=== PATIENT | male | born 1955 | race Caucasian/White ===

== ENCOUNTER → 2016-11-16 | Outpatient (CLI) | payer OTHER ==
--- NOTE | 2016-11-16 16:17 | Diagnostic Imaging Report ---
Three views of the nasal bones. INDICATION: Fall. FINDINGS: No fracture or radiopaque foreign body is seen. The paranasal sinuses appear clear. IMPRESSION: No nasal bone fracture seen. Dictated by: Dictated on workstation # [id number]
== END ==
LOC: RAD 15:49
PROVIDERS: ATTEND Otolaryngology Otolaryngology/Facial Plastic Surgery
DX: S09.92XA Unspecified injury of nose, initial encounter (principal); W19.XXXA Unspecified fall, initial encounter; Y99.8 Other external cause status
CPT/HCPCS: 70160

== ENCOUNTER 2019-09-22 10:01 | Day surgery (SDC) | payer MEDICARE, OTHER ==
[~2019-09-22] VITALS: Ht 177.5 cm; Wt 113.6 kg
[2019-09-22] MEDS ORDERED: NITROGLYCERIN 0.4 MG SL TABS BTL 25'S SL ONE (10:03)
[2019-09-22] MEDS ORDERED: ASPIRIN 81 MG CHEW (CHILDREN'S ASA) ONE (10:03)
[2019-09-22 10:16] LABS: BASOPHILS % (AUTO) 0 % (0-10); EOSINOPHILS % (AUTO) 0 % (0-10); HEMATOCRIT 48 % (40-54); HEMOGLOBIN 16.2 G/DL (13.3-17.7); LYMPHOCYTES # (AUTO) 1.2 X 10^3 (1.0-4.0); LYMPHOCYTES % (AUTO) 10 % (12-44); MEAN CORPUSCULAR HEMOGLOBIN 30 PG (25-34); MEAN CORPUSCULAR HGB CONC 34 G/DL (32-36); MEAN CORPUSCULAR VOLUME 87 FL (80-99); MEAN PLATELET VOLUME 8.9 FL (7.4-10.4); MONOCYTES # (AUTO) 0.5 X 10^3 (0.0-1.0); MONOCYTES % (AUTO) 4 % (0-12); NEUTROPHILS # (AUTO) 10.5 X 10^3 (1.8-7.8); NEUTROPHILS % (AUTO) 86 % (42-75); PLATELET COUNT 291 10^3/uL (130-400); RED CELL DISTRIBUTION WIDTH 13.5 % (10.0-14.5); WHITE BLOOD COUNT 12.3 10^3/uL (4.3-11.0)
[2019-09-22 10:26] LABS: INR 0.9 (0.8-1.4); PROTHROMBIN TIME PATIENT 12.4 SEC (12.2-14.7)
--- NOTE | 2019-09-22 10:33 | ED Chest Pain ---
General Chief Complaint: Chest Pain Stated Complaint: CP Nursing Triage Note: Pt c/o chest pain on and off for several years. Pt reports pain worsened yesterday and was intermittent until 0300 this morning when pain became constant. Pt describes pain as constant/aggrevating. Pt reports sweaty palms at times. Nursing Sepsis Screen: No Definite Risk Source: patient Exam Limitations: no limitations History of Present Illness Date Seen by Provider: Sep 22, 2019 Time Seen by Provider: 10:10 Initial Comments Here with complaint of central chest pain that radiates slightly to the right. He's had chest pain on and off for quite a while but has worsened both in intensity and frequency. Did have chest pain yesterday and again this morning and is persisting. He did take his blood pressure medicines this morning but only just shortly before arrival. Does have history of hypertension. No history of heart problems and has never been worked up for that before. Denies nausea or vomiting but does have sweating hands. Timing/Duration: 4-6 hours, changing over time, intermittent Severity/Quality: moderate, aching, tightness Location: central Radiation: other (right chest) Activities at Onset: sleep Prior CP/Workup: no prior cardiac workup Modifying Factors: worse with exercise, worse with movement; improves with rest ASA po ASSOCIATE PROFESSOR OF PSYCHOLOGY: No NTG SL ASSOCIATE PROFESSOR OF PSYCHOLOGY: No Associated Symptoms: No abdominal pain, No back pain, No fatigue, No fever/chills, No nausea/vomiting, No shortness of breath, No weakness Allergies and Home Medications Allergies Coded Allergies: No Known Drug Allergies (Unverified , 09/22/19) Patient Home Medication List Home Medication List Reviewed: Yes Review of Systems Review of Systems Constitutional: no symptoms reported EENTM: No Symptoms Reported Respiratory: Denies Cough, Denies Shortness of Air Cardiovascular: Chest Pain; Denies Edema Gastrointestinal: Denies Abdominal Pain, Denies Diarrhea, Denies Nausea, Denies Vomiting Genitourinary: No Symptoms Reported Musculoskeletal: no symptoms reported Skin: no symptoms reported All Other Systems Reviewed Negative Unless Noted: Yes Past Vfczvcq-Cmdnpp-Atdvoc Hx Past Med/Social Hx: Reviewed Nursing Past Med/Soc Hx Patient Social History Alcohol Use: Denies Use Recreational Drug Use: No Type Used: Smokeless Tobacco 2nd Hand Smoke Exposure: No Recent Foreign Travel: No Contact w/Someone Who Travel: No Recent Infectious Disease Expo: No Recent Hopitalizations: No Past Medical History Surgeries: Yes (lung, 7 hand surgeries) Orthopedic Respiratory: No Cardiac: Yes High Cholesterol, Hypertension Neurological: No Genitourinary: No Gastrointestinal: No Musculoskeletal: No Endocrine: No HEENT: No Cancer: No Psychosocial: No Integumentary: No Blood Disorders: No Adverse Reaction/Blood Tranf: No Family Medical History Reviewed Nursing Family Hx No Pertinent Family Hx Physical Exam Vital Signs Vital Signs - First Documented Capillary Refill : Less Than 3 Seconds Height, Weight, BMI Height: '" Weight: lbs. oz. kg; 34.00 BMI Method: General Appearance: No Apparent Distress, WD/WN HEENT: PERRL/EOMI, Pharynx Normal Neck: Non Tender, Supple Respiratory: Lungs Clear, Normal Breath Sounds Cardiovascular: Regular Rate, Rhythm, No Murmur Gastrointestinal: Non Tender, Soft Extremity: Normal Range of Motion, Non Tender Neurologic/Psychiatric: Alert, Oriented x3 Skin: Normal Color, Warm/Dry Progress/Results/Core Measures Results/Orders Lab Results Laboratory Tests Test 09/22/19 10:05 Range/Units White Blood Count 12.3 H 4.3-11.0 10^3/uL Red Blood Count 5.49 4.35-5.85 10^6/uL Hemoglobin 16.2 13.3-17.7 G/DL Hematocrit 48 40-54 % Mean Corpuscular Volume 87 80-99 FL Mean Corpuscular Hemoglobin 30 25-34 PG Mean Corpuscular Hemoglobin Concent 34 32-36 G/DL Red Cell Distribution Width 13.5 10.0-14.5 % Platelet Count 291 130-400 10^3/uL Mean Platelet Volume 8.9 7.4-10.4 FL Neutrophils (%) (Auto) 86 H 42-75 % Lymphocytes (%) (Auto) 10 L 12-44 % Monocytes (%) (Auto) 4 0-12 % Eosinophils (%) (Auto) 0 0-10 % Basophils (%) (Auto) 0 0-10 % Neutrophils # (Auto) 10.5 H 1.8-7.8 X 10^3 Lymphocytes # (Auto) 1.2 1.0-4.0 X 10^3 Monocytes # (Auto) 0.5 0.0-1.0 X 10^3 Eosinophils # (Auto) 0.0 0.0-0.3 10^3/uL Basophils # (Auto) 0.0 0.0-0.1 10^3/uL Prothrombin Time 12.4 12.2-14.7 SEC INR Comment 0.9 0.8-1.4 Activated Partial Thromboplast Time 29 24-35 SEC D-Dimer < 0.27 0.00-0.49 UG/ML Sodium Level 137 135-145 MMOL/L Potassium Level 4.1 3.6-5.0 MMOL/L Chloride Level 101 98-107 MMOL/L Carbon Dioxide Level 28 21-32 MMOL/L Anion Gap 8 5-14 MMOL/L Blood Urea Nitrogen 12 7-18 MG/DL Creatinine 0.95 0.60-1.30 MG/DL Estimat Glomerular Filtration Rate > 60 BUN/Creatinine Ratio 13 Glucose Level 171 H 70-105 MG/DL Calcium Level 8.9 8.5-10.1 MG/DL Corrected Calcium 8.7 8.5-10.1 MG/DL Magnesium Level 1.9 1.6-2.4 MG/DL Total Bilirubin 0.4 0.1-1.0 MG/DL Aspartate Amino Transf (AST/SGOT) 25 5-34 U/L Alanine Aminotransferase (ALT/SGPT) 20 0-55 U/L Alkaline Phosphatase 66 40-136 U/L Myoglobin 166.7 H 10.0-92.0 NG/ML Troponin I 0.445 *H <0.028 NG/ML Total Protein 6.9 6.4-8.2 GM/DL Albumin 4.3 3.2-4.5 GM/DL Micro Results Microbiology 09/22/19 Influenza Types A,B Antigen (JAYMIE) - Final, Complete My Orders Orders - JUNE DECKER MD Cbc With Automated Diff (09/22/19 10:06) Magnesium (09/22/19 10:06) Chest 1 View, Ap/Pa Only (09/22/19 10:06) Ekg Tracing (09/22/19 10:06) Comprehensive Metabolic Panel (09/22/19 10:06) Myoglobin Serum (09/22/19 10:06) Protime With Inr (09/22/19 10:06) Partial Thromboplastin Time (09/22/19 10:06) O2 (09/22/19 10:06) Monitor-Rhythm Ecg Trace Only (09/22/19 10:06) Lipid Panel (09/23/19 06:00) Ed Iv/Invasive Line Start (09/22/19 10:06) Troponin I (09/22/19 10:06) Nitroglycerin 0.4 Mg Btl 25's (Nitrostat (09/22/19 10:03) Aspirin Chewable Tablet (Baby Aspirin Ch (09/22/19 10:03) Fibrin Degradation Products (09/22/19 10:13) Influenza A And B Antigens (09/22/19 10:13) Lactated Ringers (Lr 1000 Ml Iv Solution (09/22/19 11:37) Clopidogrel Tablet (Plavix Tablet) (09/22/19 11:44) Clopidogrel Tablet (Plavix Tablet) (09/22/19 12:00) Heparin Drip [id number] Unit/500ml (Heparin (09/22/19 11:47) Heparin (Bolus Per Protocol) (Heparin (B (09/22/19 11:47) Heparin Drip [id number] Unit/500ml (Heparin (09/22/19 11:45) Heparin (Bolus Per Protocol) (Heparin (B (09/22/19 11:46) Medications Given in ED Current Medications Medications Dose Ordered Sig/Primo Route Start Time Stop Time Status Last Admin Dose Admin Aspirin 81 mg STK-MED ONCE .ROUTE 09/22/19 10:03 09/22/19 10:09 DC 09/22/19 10:10 324 MG Nitroglycerin 0.4 mg STK-MED ONCE SL 09/22/19 10:03 09/22/19 10:09 DC 09/22/19 10:11 0.4 MG Vital Signs/I&O 09/22/19 09/22/19 10:02 10:02 Temp 36.7 Pulse 102 Resp 30 B/P (MAP) 161/117 (132) Pulse Ox 97 O2 Delivery Room Air Room Air Blood Pressure Mean: 132 Progress Progress Note : Progress Note Seen and evaluated. Chest pain order set initiated. ASA 324 mg by mouth ordered. Nitroglycerin sublingual ordered. The nitroglycerin did help both his blood pressure and his chest pain. Monitor patient. 1150: Troponin is elevated. Patient's blood pressure is starting to get soft. We have initiated LR 1 L bolus which has helped. Pain is resolved. I do have concerns that this is MS although is not ST elevation MS. I did discuss the case with Dr. Castanon. He will take the patient to the [facility]. Family informed. Plavix 300 mg by mouth. Heparin 5000 unit bolus and 1000 unit an hour drip has been ordered. [facility]st team is been activated. Initial ECG Impression Date: Sep 22, 2019 Initial ECG Impression Time: 10:05 Initial ECG Rate: 100 Initial ECG Rhythm: S.Tach Comment Sinus tachycardia with inferior Q waves that are new from 02/28/07. No evidence of ST elevation MS. Normal axis. Interpreted by me. Diagnostic Imaging Diagonstic Imaging: Xray Plain Films/CT/US/NM/MRI: chest Comments [facility], [place] NAME: MIR CHINCHILLA [facility] REC#: [id number] PT STATUS: REG ER : 1955 PHYSICIAN: JUNE DECKER MD ADMIT DATE: 09/22/19/ER Signed Date of Exam:09/22/19 CHEST 1 VIEW, AP/PA ONLY EXAMINATION: Chest 1 view HISTORY: Chest pain. COMPARISON: 02/28/2007 FINDINGS: The lung volumes are normal. No focal consolidation is seen. No large pleural effusion or pneumothorax is seen. The cardiomediastinal silhouette is normal in size and contour. No acute osseous abnormality is seen. IMPRESSION: 1. No acute pleuroparenchymal process. Dictated by: Dictated on workstation # [id number] Dict: 09/22/19 1031 Trans: 09/22/19 1032 [facility] [id number] Interpreted by: DARREL PUGA DO Electronically signed by: DARREL PUGA DO 09/22/19 1032 Departure Communication (Admissions) Time/Spoke to Admitting Phy: 11:50 Impression Primary Impression: Non-ST elevation MS (NSTEMI) Disposition: ADMITTED INPATIENT Condition: Stable Admissions Decision to Admit Reason: Admit from ER (General) Decision to Admit/Date: Sep 22, 2019 Time/Decision to Admit Time: 11:50 Departure-Patient Inst. Referrals: UNIQUE LAMAS MD (PCP/Family) Primary Care Physician JUNE DECKER MD Sep 22, 2019 10:33
[2019-09-22 10:34] LABS: ALANINE AMINOTRANSFERASE 20 U/L (0-55); ALBUMIN 4.3 GM/DL (3.2-4.5); ALKALINE PHOSPHATASE 66 U/L (40-136); BILIRUBIN,TOTAL 0.4 MG/DL (0.1-1.0); BUN/CREATININE RATIO 13; CALCIUM 8.9 MG/DL (8.5-10.1); CARBON DIOXIDE 28 MMOL/L (21-32); CHLORIDE 101 MMOL/L (98-107); CREATININE SERUM 0.95 MG/DL (0.60-1.30); GFR ESTIMATED > 60; GLUCOSE 171 MG/DL (70-105); MAGNESIUM 1.9 MG/DL (1.6-2.4); POTASSIUM 4.1 MMOL/L (3.6-5.0); SODIUM 137 MMOL/L (135-145); TOTAL PROTEIN 6.9 GM/DL (6.4-8.2)
[2019-09-22] MEDS ORDERED: LACTATED RINGERS 1,000 ML IV ONE (11:37)
[2019-09-22] MEDS ORDERED: CLOPIDOGREL 300 MG (PLAVIX) TABLET PO ONE ×2 (11:44→12:00)
[2019-09-22] MEDS ORDERED: HEParin DRIP 25000 UNIT/500ML 0 ML IV ONE (11:45)
[2019-09-22] MEDS ORDERED: HEParin 1000 UNIT/ML (10ML VIAL) FOR BOLUS ONE (11:46)
[2019-09-22] MEDS ORDERED: HEParin 1000 UNIT/ML (10ML VIAL) FOR BOLUS IV ONE (11:47)
[2019-09-22] MEDS ORDERED: HEParin DRIP 25000 UNIT/500ML 500 ML IV ONE ×2 (11:47→14:30)
--- NOTE | 2019-09-22 12:08 | NUR ---
DR KANG HERE TO SEE PT
[2019-09-22] MEDS ORDERED: LIDOCAINE 1% INJ 20 ML 20 ML VIAL ONE (12:10)
[2019-09-22] MEDS ORDERED: HEParin (CATH LAB) 2,000 ML IV ONE (12:11)
--- NOTE | 2019-09-22 12:15 | NUR ---
PT REQUEST SIGN CONSENT FOR HEART CATH
[2019-09-22] MEDS ORDERED: MIDAZOLAM 5 MG/5 ML (VERSED) VIAL ONE ×2 (12:18→13:37)
[2019-09-22] MEDS ORDERED: fentaNYL INJECTION 100 MCG/2 ML AMP ONE ×2 (12:18→13:37)
--- NOTE | 2019-09-22 12:21 | Cardiology History & Physical ---
HPI-Cardiology Cardiology H&P Date of Admission 09/22/19 Primary Care Physician Calli Lloyd MD Attending Physician Milan Castanon MD, MA FACP [facility] CCDS Consulting Physician LUIS A CC: Chest discomfort HPI: 64 yo man with more than 24 hours of chest pain that is mid sternal and R parasternal, mod in intensity, non-radiating, worse with activity, improved with rest, improved with s/l NTG in ER, not associated with nausea or diaphoresis, not experienced before Kishan shortness of breath or palp or syncope or leg swelling Review of Systems-Cardiology Review of Systems Constitutional: No lightheadedness, No malaise, No weight loss, No weight gain Eyes: No vision change Ears/Nose/Throat: No ear discharge, No nasal drainage Respiratory: As described under HPI Cardiovascular: As described under HPI Gastrointestinal: No constipation, No diarrhea, No nausea, No vomiting Genitourinary: No dysuria, No hematuria, No urine frequency changes Musculoskeletal: No back pain, No joint pain Skin: No rash, No ulcerations Psychiatric/Neurological: No seizure, No focal weakness, No syncope Hematologic: No bleeding abnormalities All Other Systems Reviewed Negative Unless Noted: Yes OLY-Ytsiou-Sczxkf Hx Patient Social History Alcohol Use: Denies Use Recreational Drug Use: No Type Used: Smokeless Tobacco 2nd Hand Smoke Exposure: No Recent Foreign Travel: No Recent Infectious Disease Expo: No Hospitalization with Isolation: Denies Past Medical History PMH As described under Assessment. Family Medical History Family Medical History: Does not report fam h/o early CAD or SCD Allergies and Home Medications Allergies Coded Allergies: No Known Drug Allergies (Unverified , 09/22/19) Patient Home Medication List Home Medication List Reviewed: Yes Physical Exam-Cardiology Physical Exam Vital Signs/I&O 09/22/19 09/22/19 10:02 10:02 Temp 36.7 Pulse 102 Resp 30 B/P (MAP) 161/117 (132) Pulse Ox 97 O2 Delivery Room Air Room Air Capillary Refill : Less Than 3 Seconds Constitutional: AAO x 3, well-developed, well-nourished HEENT: EOMI, hearing is well preserved; No xanthelasmas are seen Neck: carotid pulses are 2 + bilaterally, with good upstrokes Respiratory: No accessory muscle use; other (good bilat air entry) Cardiovascular: regular rate-rhythm, S1 and S2, systolic murmur (faint MAEVE at card base) Gastrointestinal: No tender; soft; No guarding, No rebound; audible bowel sounds Extremities: No clubbing, No cyanosis, No significant edema Neurologic/Psychiatric: No oriented x 3; other (moves all limbs equally) Skin: No rash, No ulcerations Data Review Labs Laboratory Tests 09/22/19 10:05: White Blood Count 12.3H, Red Blood Count 5.49, Hemoglobin 16.2, Hematocrit 48, Mean Corpuscular Volume 87, Mean Corpuscular Hemoglobin 30, Mean Corpuscular Hemoglobin Concent 34, Red Cell Distribution Width 13.5, Platelet Count 291, Mean Platelet Volume 8.9, Neutrophils (%) (Auto) 86H, Lymphocytes (%) (Auto) 10L , Monocytes (%) (Auto) 4, Eosinophils (%) (Auto) 0, Basophils (%) (Auto) 0, Neutrophils # (Auto) 10.5H, Lymphocytes # (Auto) 1.2, Monocytes # (Auto) 0.5, Eosinophils # (Auto) 0.0, Basophils # (Auto) 0.0, Prothrombin Time 12.4, INR Comment 0.9, Activated Partial Thromboplast Time 29, D-Dimer < 0.27, Sodium Level 137, Potassium Level 4.1, Chloride Level 101, Carbon Dioxide Level 28, Anion Gap 8, Blood Urea Nitrogen 12, Creatinine 0.95, Estimat Glomerular Filtration Rate > 60, BUN/Creatinine Ratio 13, Glucose Level 171H, Calcium Level 8.9, Corrected Calcium 8.7, Magnesium Level 1.9, Total Bilirubin 0.4, Aspartate Amino Transf (AST/SGOT) 25, Alanine Aminotransferase (ALT/SGPT) 20, Alkaline Phosphatase 66, Myoglobin 166.7H, Troponin I 0.445*H, Total Protein 6.9, Albumin 4.3 Microbiology 09/22/19 Influenza Types A,B Antigen (JAYMIE) - Final, Complete Laboratory Tests 09/22/19 10:05 A/P-Cardiology Assessment/Admission Diagnosis Acute NSTEMI Hypertension Hyperlipidemia Obesity with BMI approx 35 Admission Status: Inpatient Order (span 2 midnights) Reason for Inpatient Admission: Ac [place] Discussion and Recomendations * Urgent cath with possible PCI, given unstable symptoms (only partially responsive to meds, pain continues, intermittently low bp) * We discussed the rationale, procedure, risks, benefits, potential complicat ions, and alternatives of card and possible PCI. He understands and provides informed consent Clinical Quality Measures AMI/AHF: ASA po Prior to arrival: MILAN Campbell MD FACP FAC CCDS Sep 22, 2019 12:21
--- NOTE | 2019-09-22 14:55 | Cardiac Procedure Note-CS/ASA ---
Pre-Procedure Note Pre-Op Procedure Note H&P Reviewed The H&P was reviewed, patient examined and no changes noted. Date H&P Reviewed: Sep 22, 2019 Time H&P Reviewed: 12:50 Conscious Sedation Pre-Proced Time 12:50 ASA Score 3 For ASA 3 and 4: Consider anesthesia and medical clearance. Also, for patients with a history of failed moderate sedation consider anesthesia. Airway Lungs Heart ASA score ASA 1: a normal healthy patient ASA 2: a patient with a mild systemic disease (mid diabetes, controlled hypertension, obesity ASA 3: a patient with a severe systemic disease that limits activity (angina, COPD, prior Myocardial infarction) ASA 4: a patient with an incapacitating disease that is a constant threat to life (CHF, renal failure) ASA 5: a moribund patient not expected to survive 24 hrs. (ruptured aneurysm) ASA 6: a declared brain- patient whose organs are being harvested. For emergent operations, add the letter E after the classification Mallampati Classification Grade 3 Sedation Plan Analgesia, Amnesia, Plan communicated to team members, Discussed options with patient/fam, Discussed risks with patient/fam The patient is an appropriate candidate to undergo the planned procedure, sedation, and anesthesia. The patient immediately re-assessed prior to indication. SHAY KANG MD FACP FAC CCDS Sep 22, 2019 14:55
--- NOTE | 2019-09-22 15:01 | Cardiology Discharge Summary ---
Diagnosis/Chief Complaint Date of Admission 09/22/19 Date of Discharge 09/22/19 Admission Diagnosis Acute NSTEMI Hypertension Hyperlipidemia Obesity with BMI approx 35 Final/Discharge Diagnosis Acute NSTEMI Card cath of 09/22/19: Long, up to 95% prox and mid LAD, 70-80% prox D2, 50% mid LCX, 100% distal RCA, L to R collaterals, LVEDP 9 mmHg, LVEF 35-40%, posterobasal akinesis, apical hypokinesis H/o hypertension H/o hyperlipidemia Obesity with BMI approx 35 Chief Complaint/HPI Chief Complaint/HPI CC: Chest discomfort HPI: 64 yo man with more than 24 hours of chest pain that is mid sternal and R parasternal, mod in intensity, non-radiating, worse with activity, improved with rest, improved with s/l NTG in ER, not associated with nausea or diaphoresis, not experienced before Kishan shortness of breath or palp or syncope or leg swelling Hosp course Card cath undertaken. Results summarized above. CABG appears to be the best treatment option. IABP inserted to stabilize angina and bp. We spoke with Dr Dolan at [facility] who has accepted the patient in transfer. Arrangement are being made Discharge Summary Procedures Cardiac cath and IABP Hospital Course Pending Labs Microbiology Date/Time Source Procedure Growth Status 09/22/19 10:12 Nasopharynx Influenza Types A,B Antigen (JAYMIE) - Final Complete Laboratory Tests 09/22/19 10:05: White Blood Count 12.3, Red Blood Count 5.49, Hemoglobin 16.2, Hematocrit 48, Mean Corpuscular Volume 87, Mean Corpuscular Hemoglobin 30, Mean Corpuscular Hemoglobin Concent 34, Red Cell Distribution Width 13.5, Platelet Count 291, Mean Platelet Volume 8.9, Neutrophils (%) (Auto) 86, Lymphocytes (%) (Auto) 10, Monocytes (%) (Auto) 4, Eosinophils (%) (Auto) 0, Basophils (%) (Auto) 0, Neutrophils # (Auto) 10.5, Lymphocytes # (Auto) 1.2, Monocytes # (Auto) 0.5, Eosinophils # (Auto) 0.0, Basophils # (Auto) 0.0, Prothrombin Time 12.4, INR Comment 0.9, Activated Partial Thromboplast Time 29, D-Dimer < 0.27, Sodium Level 137, Potassium Level 4.1, Chloride Level 101, Carbon Dioxide Level 28, Anion Gap 8, Blood Urea Nitrogen 12, Creatinine 0.95, Estimat Glomerular Filtration Rate > 60, BUN/Creatinine Ratio 13, Glucose Level 171, Calcium Level 8.9, Corrected Calcium 8.7, Magnesium Level 1.9, Total Bilirubin 0.4, Aspartate Amino Transf (AST/SGOT) 25, Alanine Aminotransferase (ALT/SGPT) 20, Alkaline Phosphatase 66, Myoglobin 166.7, Troponin I 0.445, Total Protein 6.9, Albumin 4.3 Discussion & Recommendations Home Medications Reviewed patient Home Medication Reconciliation performed by pharmacy medication reconciliations avionics systems technician and/or nursing. Patients Allergies have been reviewed. Discharge Home Medications: Reviewed and agree with Discharge Medication list on patient's Discharge Instruction sheet Clinical Quality Measures AMI/AHF: ASA po Prior to arrival: SHAY Campbell MD FACP FAC CCDS Sep 22, 2019 15:01
--- NOTE | 2019-09-22 15:05 | NUR ---
Pt arrived to [facility] with cheesemaking laborer RNs. IABP in place at 1:1. Sheath site assessed et without s/s bleeding. Opsite over site et c/d/i. Pt A&O, denies pain. Pt educated on importance on staying flat without lifting head or moving rt leg. Pt verbalizes understanding.
[2019-09-22 15:15] VITALS: BP 122/82
[2019-09-22 15:30] VITALS: BP 123/73
--- NOTE | 2019-09-22 15:30 | NUR ---
Report called to CB Talamantes at [facility]
[2019-09-22 15:45] VITALS: BP 98/68
[2019-09-22 16:00] VITALS: BP 102/70
--- NOTE | 2019-09-22 16:15 | NUR ---
Julio et [facility] here to transport pt to [facility]. Report given
--- NOTE | 2019-09-22 16:48 | CARDIAC CATHETERIZATION ---
DATE OF SERVICE: 09/22/2019 CARDIAC CATHETERIZATION REPORT The patient is a 64-year-old man who presented to the emergency room with chest pain. Troponin was minimally elevated. Diagnosis of acute non-ST elevation myocardial infarction was made. Symptoms remained unstable and the blood pressure was also intermittently somewhat low. Urgent cardiac catheterization was recommended. Informed consent was obtained. DESCRIPTION OF PROCEDURE: He was brought to the cardiac catheterization laboratory. The right groin was prepared and draped in the usual sterile fashion. Lidocaine 1% was used for local anesthesia. Modified Seldinger technique was used to advance a 5-[place] sheath in the right femoral artery. A 5-[place] JL4 catheter for left coronary angiography. A 5-[place] JR4 catheter was used for right coronary angiography. A 5-[place] pigtail catheter was used for left heart catheterization and left ventricular angiography. Pigtail catheter was pulled back to the aortic arch and aortic arch angiography was performed. Aortic arch angiography was performed after the decision had been made to insert a balloon pump. The diagnostic catheters were removed. The sheath was exchanged over a wire for a long sheath for a balloon pump. Balloon pump was inserted under fluoroscopy. The tip of the balloon pump is just caudal to the left subclavian artery. The patient tolerated the procedure well. The balloon pump was sutured in place. HEMODYNAMICS: Left ventricular end-diastolic pressure following coronary angiography was 9 mmHg. There was no significant pressure gradient on pullback across the aortic valve. Ascending aortic pressure was 93/63 with a mean of 77 mmHg. CORONARY ANGIOGRAPHY: Left main coronary artery did not exhibit significant obstructive disease. Left anterior descending artery has severe disease in its proximal and mid portions. There are stenoses up to 95%. The second obtuse marginal branch is of a fairly large caliber and has 70% to 80% ostial stenosis. The left anterior descending artery is heavily calcified in its proximal and mid portions. The left circumflex artery has approximately 50 to 60% stenosis following the origin of the first obtuse marginal branch. The right coronary artery is occluded in its distal portion. There are left to right collaterals. LEFT VENTRICULAR ANGIOGRAPHY: Left ventricular angiography was carried out on the right anterior oblique projection. Global left ventricular systolic function is impaired and the ejection fraction is estimated to be 35 to 40%. There is posterobasal akinesis. There is hypokinesis of the diaphragmatic and the apical moore of the left ventricle. CONCLUSIONS: 1. Coronary artery disease consisting of a long stenosis within the proximal and mid left anterior descending artery that is up to 95%, 70% to 80% ostial and proximal stenosis of a large second diagonal, 50% stenosis of the mid left circumflex, and a distal vessel occlusion of the right coronary. There are left to right collaterals. 2. Normal left ventricular end-diastolic pressure. 3. Impairment of global left ventricular systolic function with an ejection fraction of 35% to 40%. 4. Posterobasal akinesis and diaphragmatic and apical hypokinesis. DISCUSSION AND RECOMMENDATIONS: Based on results of the study, coronary artery bypass surgery appears to be the best treatment option. We proceeded with balloon pump implantation to maximize treatment, we have inserted. We have inserted balloon pump. We have spoken with Dr. Dolan of cardiovascular surgical service at [facility]. He has accepted the patient in transfer. Arrangements are being made at the time of this dictation. I have also discussed his cardiac catheterization findings with the patient and his . Job ID: [id number] DocumentID: [id number] Dictated Date: 09/22/2019 14:51:25 Keypunch Operator Date: 09/22/2019 16:47:33 Dictated By: SHAY KANG MD, MA, FACP, FACC,
== END 2019-09-22 16:39 | disposition other institution (70) ==
LOC: EDUNIT# 10:01 → ER 10:03 → CATH 12:14 → ICU 15:05 → CATH 16:39
PROVIDERS: ATTEND Internal Medicine Cardiovascular Disease
DX: I21.4 Non-ST elevation (NSTEMI) myocardial infarction (principal); I10 Essential (primary) hypertension; E78.00 Pure hypercholesterolemia, unspecified; E78.5 Hyperlipidemia, unspecified; E66.9 Obesity, unspecified; Z68.35 Body mass index [BMI] 35.0-35.9, adult
CPT/HCPCS: 33967; 36221; 36415; 71045; 80053; 83735; 83874; 84484; 85025; 85379; 85610; 85730; 87804; 93005; 93041; 93458

== ENCOUNTER → 2020-01-16 | Outpatient (CLI) | payer MEDICARE, OTHER | LOC: CARD 08:25 | PROVIDERS: ATTEND Physician Assistant | DX: I25.10 Atherosclerotic heart disease of native coronary artery without angina pectoris (principal); I10 Essential (primary) hypertension; E78.2 Mixed hyperlipidemia; E66.9 Obesity, unspecified | CPT/HCPCS: 93306 ==

== ENCOUNTER → 2021-01-18 | Outpatient (CLI) | payer MEDICARE, OTHER ==
[~2021-01-18] MED LIST: CATHETER FLUSH 10 ML SYR IV PRN
[2021-01-18 08:55] VITALS: BP 157/92
--- NOTE | 2021-01-18 12:31 | Cardiology Stress Test Report ---
Stress Test Report Date of Procedure/Referring: Date of Procedure: Jan 18, 2021 Izzy Caba Admitting Physician Calli Lloyd MD Indications: CAD Baseline Heart Rate: 71 Baseline Blood Pressure: Blood Pressure Systolic: 157 Blood Pressure Diastolic: 92 Vital Signs Date Time Temp Pulse Resp B/P (MAP) Pulse Ox O2 Delivery O2 Flow Rate FiO2 01/18/21 08:55 71 14 157/92 (113) 97 Room Air Baseline Vital Signs Vital Signs Date Time Temp Pulse Resp B/P (MAP) Pulse Ox O2 Delivery O2 Flow Rate FiO2 01/18/21 08:55 71 14 157/92 (113) 97 Room Air Baseline EKG: Baseline EKG: NSR Summary: After explaining the procedure and details to the patient, he signed the consent and was brought to the stress nuclear laboratory. Patient exercised on standard Andriy protocol, EKG, heart rate and blood pressure were monitored continuously, resting and stress doses of radio tracer were injected, imaging was acquired and reviewed in the short axis, horizontal long axis and vertical long axis views Patient was able to exercise for a total of 3 minutes on Andriy protocol, METs 4.6 Maximum heart rate 134 Maximum blood pressure 221/102 Stress EKG, Minimal nondiagnostic changes Recovery EKG, Return to baseline TID: 0.9 SSS: 1 SDS: 1 EF: 46 Conclusion: 1. Poor exercise tolerance for a total of 3 minutes on standard Andriy protocol, 4.6 METS achieving 87% of maximal expected heart rate 2. Severe hypertensive response to exercise with peak blood pressure 221/102 return to baseline during recovery 3. Diaphragmatic attenuation with decreased uptake involving the inferior wall with mild reversibility, mild ischemia in the inferior wall, could be secondary to the diaphragmatic attenuation 4. Normal left ventricular size with hypokinesia of the inferior wall, ejection fraction 46% CORKY BALLARD MD Jan 18, 2021 12:31
== END ==
LOC: CARD 07:30
PROVIDERS: ATTEND Physician Assistant
DX: I25.10 Atherosclerotic heart disease of native coronary artery without angina pectoris (principal)
CPT/HCPCS: 78452; 93017; A9502

== ENCOUNTER → 2021-08-16 | Outpatient (CLI) | payer MEDICARE, OTHER | LOC: CARD 08:30 | PROVIDERS: ATTEND Internal Medicine Cardiovascular Disease | DX: I10 Essential (primary) hypertension (principal) | CPT/HCPCS: 93306 ==